=== PATIENT | female | born 1995 | race Caucasian/White ===

== ENCOUNTER 2024-09-21 13:04 | Emergency (ER) | payer OTHER ==
[~2024-09-21] VITALS: Ht 177.8 cm; Wt 72.6 kg
[2024-09-21 13:14] VITALS: BP 119/82; PULSE 80; RESP 16; TEMP 36.9; O2SAT 100
== END 2024-09-21 18:00 | disposition left against medical advice (07) ==
LOC: ER 13:04
DX: R10.84 Generalized abdominal pain (principal); R11.2 Nausea with vomiting, unspecified; Z53.21 Procedure and treatment not carried out due to patient leaving prior to being seen by health care provider